=== PATIENT | male | born 1985 ===

== ENCOUNTER 2017-09-24 10:18 | Emergency (ER) | payer SELFPAY ==
[~2017-09-24] VITALS: Ht 182.9 cm; Wt 72.6 kg
[~2017-09-24 10:18] MED LIST: DOXY100 PO; HYDACE5 PO; IBUP800 PO; OXYACE5T PO; RXIBUP800 PO; RXOXYACE PO
[2017-09-24] MEDS ORDERED: Norco 5-325 Ta1 EACH PO (12:13)
[2017-09-24] MEDS ORDERED: CYCL10 PO (12:13)
== END 2017-09-24 12:19 | disposition home or self-care (01) ==
LOC: ER 10:18
DX: M54.32 Sciatica, left side (principal)
CPT/HCPCS: 73502; 99283